=== PATIENT | male | born 1990 | race Caucasian/White ===

== ENCOUNTER 2016-11-05 23:51 | Emergency (ER) | payer OTHER, BC ==
[~2016-11-05] VITALS: Ht 175.3 cm; Wt 111.9 kg
[~2016-11-05 23:51] MED LIST: FLEXERIL10 MG PO; MOTRIN600 MG PO; NAPROSYN500 MG PO; REGLAN10 MG PO
[2016-11-06 01:22] LABS: BASOPHIL COUNT 0.1 K/uL (0-0.1); EOSINOPHIL (%) 0.4 % (0-5); EOSINOPHIL COUNT 0.1 K/uL (0-0.3); HEMATOCRIT 42.4 % (38.0-50.0); IMMATURE GRANULOCYTE (%) 0.2 % (0.0-0.7); INSTRUMENT ABS NEUTROPHIL CT 7.8 K/uL; MCH 29.4 PG (29.0-34.0); MCHC 34.4 G/DL (30.0-36.0); MCV 85.3 FL (86-99); MEAN PLAT.VOLUME 9.7 uM^3 (9.0-12.4); MONOCYTE (%) 5.5 % (3-12); MONOCYTE COUNT 0.7 K/uL (0-0.8); NEUTROPHIL (%) 61.8 % (45-76); NEUTROPHIL COUNT 7.8 K/uL (1.8-6.4); PLATELET COUNT 407 K/uL (156-360); RBC DIS.WIDTH-CV 12.3 % (11.8-14.6); RED BLOOD COUNT 4.97 M/uL (4.00-5.50); WHITE BLOOD COUNT 12.6 K/uL (4.1-10.2)
[2016-11-06 01:29] LABS: CHLORIDE 104 mEq/L (99-109); POTASSIUM 3.8 mEq/L (3.7-5.4); SODIUM 139 mEq/L (136-147)
[2016-11-06 01:32] VITALS: BP 135/93
[2016-11-06 01:32] LABS: GLUCOSE 95 mg/dL (70-99)
[2016-11-06 01:33] LABS: ANION GAP 14 MEQ/L (2-14); TOTAL BILIRUBIN 0.3 mg/dL (0.0-1.0)
[2016-11-06 01:35] LABS: ALKALINE PHOSPHATASE 98 IU/L (3-129)
[2016-11-06 01:36] LABS: UREA NITROGEN (BUN) 14 mg/dL (9-23)
[2016-11-06 01:37] LABS: DIRECT BILIRUBIN 0.1 mg/dL (0.0-0.3)
[2016-11-06 01:54] LABS: GFR ESTIMATE (CALCULATED) > 59 mL/min/
== END 2016-11-06 01:35 | disposition home or self-care (01) ==
LOC: EME 23:51
PROVIDERS: Physician Assistant
DX: Z77.21 Contact with and (suspected) exposure to potentially hazardous body fluids (principal); Y99.0 Civilian activity done for income or pay; Y92.149 Unspecified place in prison as the place of occurrence of the external cause
CPT/HCPCS: 80048; 80076; 85025; 99281; 99284